=== PATIENT | female | born 1990 | race Caucasian/White ===

== ENCOUNTER → 2019-03-02 | Outpatient (REF) | payer OTHER | LOC: M LAB LCGH 12:00 | PROVIDERS: ATTEND Obstetrics & Gynecology | DX: Z12.4 Encounter for screening for malignant neoplasm of cervix (principal) | CPT/HCPCS: 87624; G0123 ==

== ENCOUNTER 2022-08-04 00:08 | Observation (INO) | payer OTHER ==
[~2022-08-04] VITALS: Ht 165.1 cm; Wt 91.1 kg
[2022-08-04] MEDS ORDERED: SERT50TA29 PO (00:19)
[2022-08-04] MEDS ORDERED: BISO5TAB14 PO (00:19)
[2022-08-04] MEDS ORDERED: TRIA37.577 PO (00:19)
[2022-08-04] MEDS ORDERED: LOSA100T46 PO (00:19)
[2022-08-04] MEDS ORDERED: AMPICILLIN SOD/SULBACTAM SOD 1.5 GM in D5W MINI-BAG PLUS 50 ML IV ONE (01:15)
[2022-08-04] MEDS ORDERED: BOOSTRIX VACCINE (TETANUS/DIPHTH/ACEL. PERTUSSIS) 0.5ML SYR IM.IMMUN ONE (01:15)
[2022-08-04] MEDS ORDERED: RABIES IMMUNE GLOBULIN 1500 INTERNATIONAL UNIT/5ML VIAL IM.IMMUN ONE (01:15)
[2022-08-04] MEDS ORDERED: RABIES VACCINE HUMAN 2.5 INTERNATIONAL UNITS/ML VIAL IM.IMMUN ONE (01:15)
[2022-08-04 01:23] LABS: BASO % 0.6 % (0.0-1.0); EOS # 0.1 10^3/uL (0.0-0.5); EOS % 0.9 % (0.0-3.0); HEMATOCRIT 36.5 % (36.0-47.0); HEMOGLOBIN 12.4 g/dl (12.0-15.5); LYMPH # 3.1 10^3/uL (1.5-5.0); LYMPH % 47.9 % (24.0-44.0); MEAN CORPUSCULAR HEMOGLOBIN 29.4 pg (27.0-33.0); MEAN CORPUSCULAR VOLUME 86.5 fl (80.0-96.0); MONO # 0.5 10^3/uL (0.0-0.8); MONO % 7.8 % (2.0-8.0); NEUTROPHILS # 2.7 10^3/uL (1.5-8.5); NEUTROPHILS % 42.6 % (36.0-66.0); PLATELET COUNT, AUTOMATED 304 10^3/uL (150-450); RED BLOOD COUNT 4.22 10^6/uL (4.00-5.40); WHITE BLOOD COUNT 6.4 10^3/uL (4.0-10.0)
[2022-08-04 01:46] LABS: BLOOD UREA NITROGEN 6 MG/DL (9-23); CALCIUM LEVEL 8.5 MG/DL (8.5-10.1); CARBON DIOXIDE LEVEL 22 MMOL/L (20-31); CHLORIDE LEVEL 100 MMOL/L (98-107); CREATININE FOR GFR 0.54 MG/DL (0.55-1.30); GLOMERULAR FILTRATION RATE > 60.0 (>60); GLUCOSE, FASTING 93 MG/DL (60-100); POTASSIUM SERUM 3.3 MMOL/L (3.5-5.1); SODIUM LEVEL 132 MMOL/L (136-145)
[2022-08-04 01:54] LABS: ETHYL ALCOHOL (ETHANOL) 0.291 % (0.000-0.010)
[2022-08-04 02:11] LABS: HCG, SERUM QUALITATIVE NEGATIVE (NEGATIVE)
[2022-08-04] MEDS ORDERED: PANT40TA29 PO (02:16)
[2022-08-04] MEDS ORDERED: HOME MED LIST COMPLETE! XX SCH (02:20)
[2022-08-04] MEDS ORDERED: POTASSIUM CHLORIDE INJ 30 MEQ in LR 1,000 ML IV SCH (02:40)
[2022-08-04] MEDS ORDERED: ONDANSETRON 4MG 2ML VIAL IV PRN ×2 (02:40→18:25)
[2022-08-04] MEDS: MORPHINE 2 MG/ML 1ML VIAL IV PRN ×2 (04:51→13:41)
[2022-08-04 06:40] LABS: BLOOD UREA NITROGEN < 5 MG/DL (9-23); CALCIUM LEVEL 8.5 MG/DL (8.5-10.1); CARBON DIOXIDE LEVEL 26 MMOL/L (20-31); CHLORIDE LEVEL 106 MMOL/L (98-107); CREATININE FOR GFR 0.57 MG/DL (0.55-1.30); GLOMERULAR FILTRATION RATE > 60.0 (>60); GLUCOSE, FASTING 86 MG/DL (60-100); POTASSIUM SERUM 3.8 MMOL/L (3.5-5.1); SODIUM LEVEL 140 MMOL/L (136-145)
[2022-08-04] MEDS: AMPICILLIN SOD/SULBACTAM SOD 3 GM in D5W MINI-BAG PLUS 100 ML IV SCH ×3 (08:07→19:50)
[2022-08-04] MEDS: KETOROLAC 30 MG/ML 1ML VIAL IV PRN (09:00)
[2022-08-04] MEDS: LR 1,000 ML IV SCH ×2 (09:01→17:25)
[2022-08-04 13:15] VITALS: BP 115/66; TEMP 98.1; O2SAT 96
[2022-08-04] MEDS: PANTOPRAZOLE 40MG TAB (PROTONIX) PO SCH (13:37)
[2022-08-04] MEDS: SERTRALINE HCL 50 MG TAB PO SCH (13:37)
[2022-08-04] MEDS: bisoproloL fumarate 5 MG TAB PO SCH (13:38)
[2022-08-04] MEDS ORDERED: LIDOCAINE W/EPINEPHRINE 1% 20ML VIAL As Ordered ONE (16:03)
[2022-08-04] MEDS ORDERED: POVIDONE-IODINE 5% OPHTH PREP SOL 30ML As Ordered ONE (16:03)
[2022-08-04] MEDS ORDERED: POLYSPORIN TOPICAL OINTMENT 15GM As Ordered ONE (16:03)
[2022-08-04] MEDS ORDERED: ROCURONIUM BROMIDE 50MG/5ML VIAL As Ordered ONE ×2 (17:02→17:46)
[2022-08-04] MEDS ORDERED: ONDANSETRON 4MG 2ML VIAL As Ordered ONE (17:02)
[2022-08-04] MEDS ORDERED: SEVOFLURANE INHAL SOLN 250 ML BTL As Ordered ONE (17:02)
[2022-08-04] MEDS ORDERED: SUGAMMADEX SODIUM 500 MG/5 ML VIAL (BRIDION) As Ordered ONE (17:02)
[2022-08-04] MEDS ORDERED: fentaNYL 100 MCG/2 ML INJECTION As Ordered ONE ×2 (17:02→17:49)
[2022-08-04] MEDS ORDERED: LIDOCAINE 2% 100MG/5ML SDV (FOR ANES.) As Ordered ONE (17:02)
[2022-08-04] MEDS ORDERED: ACETAMINOPHEN 1000MG 100ML IV BAG As Ordered ONE (17:02)
[2022-08-04] MEDS ORDERED: propofoL 200 MG/20 ML VIAL As Ordered ONE (17:02)
[2022-08-04] MEDS ORDERED: METOCLOPRAMIDE INJ 10MG/2ML VIAL As Ordered ONE (17:02)
[2022-08-04] MEDS ORDERED: MIDAZOLAM INJ 2MG/2ML VIAL As Ordered ONE (17:02)
[2022-08-04] MEDS ORDERED: fentaNYL 100 MCG/2 ML INJECTION IV PRN (18:25)
[2022-08-04] MEDS ORDERED: oxyCODONE 5MG TAB PO PRN (18:25)
[2022-08-04] MEDS ORDERED: LR 1,000 ML IV SCH (18:25)
[2022-08-04] MEDS: HYDROMORPHONE HCL 0.5 MG/ 0.5 ML SYRINGE IV PRN ×2 (18:57→19:02)
[2022-08-04 19:45] VITALS: BP 128/80; TEMP 96.4; O2SAT 98
[2022-08-04 20:15] VITALS: BP 133/78; TEMP 95.4; O2SAT 98
[2022-08-04 21:15] VITALS: BP 121/75; TEMP 97.9; O2SAT 96
[2022-08-04 22:10] VITALS: BP 119/69; TEMP 96.8; O2SAT 96
[2022-08-04 23:11] VITALS: BP 115/69; TEMP 96.6; O2SAT 96
[2022-08-05 00:13] VITALS: BP 115/69; TEMP 95.9; O2SAT 96
[2022-08-05] MEDS: KETOROLAC 30 MG/ML 1ML VIAL IV PRN (00:25)
[2022-08-05] MEDS: AMPICILLIN SOD/SULBACTAM SOD 3 GM in D5W MINI-BAG PLUS 100 ML IV SCH ×2 (01:37→06:49)
[2022-08-05 02:00] VITALS: BP 115/71; TEMP 96.8; O2SAT 96
[2022-08-05] MEDS: LR 1,000 ML IV SCH (03:25)
[2022-08-05 05:23] VITALS: BP 116/69; TEMP 96.8; O2SAT 96
[2022-08-05 06:46] LABS: BASO % 0.3 % (0.0-1.0); HEMOGLOBIN 11.1 g/dl (12.0-15.5); LYMPH % 17.2 % (24.0-44.0); MEAN CORPUSCULAR HEMOGLOBIN 28.8 pg (27.0-33.0); MEAN CORPUSCULAR HGB CONC 32.6 g/dl (32.0-36.5); MEAN CORPUSCULAR VOLUME 88.3 fl (80.0-96.0); MONO # 0.4 10^3/uL (0.0-0.8); MONO % 6.6 % (2.0-8.0); NEUTROPHILS # 4.6 10^3/uL (1.5-8.5); NEUTROPHILS % 75.7 % (36.0-66.0); PLATELET COUNT, AUTOMATED 226 10^3/uL (150-450); RED BLOOD COUNT 3.85 10^6/uL (4.00-5.40)
[2022-08-05 07:11] LABS: BLOOD UREA NITROGEN 7 MG/DL (9-23); CALCIUM LEVEL 8.3 MG/DL (8.5-10.1); CARBON DIOXIDE LEVEL 25 MMOL/L (20-31); CHLORIDE LEVEL 105 MMOL/L (98-107); CREATININE FOR GFR 0.62 MG/DL (0.55-1.30); GLOMERULAR FILTRATION RATE > 60.0 (>60); GLUCOSE, FASTING 99 MG/DL (60-100); POTASSIUM SERUM 3.8 MMOL/L (3.5-5.1); SODIUM LEVEL 135 MMOL/L (136-145)
[2022-08-05] MEDS ORDERED: LOSARTAN 50MG TABLET PO SCH (09:00)
[2022-08-05] MEDS ORDERED: DYAZIDE 37.5/25 CAP (TRIAM/HCTZ) PO SCH (09:00)
[2022-08-05] MEDS: MORPHINE 2 MG/ML 1ML VIAL IV PRN (09:12)
[2022-08-05] MEDS: SERTRALINE HCL 50 MG TAB PO SCH (09:14)
[2022-08-05 09:16] VITALS: BP 129/80
[2022-08-05] MEDS: bisoproloL fumarate 5 MG TAB PO SCH (09:16)
[2022-08-05] MEDS: PANTOPRAZOLE 40MG TAB (PROTONIX) PO SCH (09:17)
[2022-08-05 09:57] VITALS: BP 129/79; TEMP 97.1; O2SAT 96
[2022-08-05] MEDS ORDERED: AMOX875T2 PO (10:33)
== END 2022-08-05 13:35 | disposition home or self-care (01) ==
LOC: M ED 00:08 → M ED INP 00:09 → ENRESERV 11:47 → M MS5PR 13:15
PROVIDERS: ADMIT Internal Medicine; ATTEND Student in an Organized Health Care Education/Training Program
DX: S01.551A Open bite of lip, initial encounter (principal); F10.920 Alcohol use, unspecified with intoxication, uncomplicated; W54.0XXA Bitten by dog, initial encounter; Y92.89 Other specified places as the place of occurrence of the external cause; I10 Essential (primary) hypertension; E87.6 Hypokalemia; E87.1 Hypo-osmolality and hyponatremia; F32.A Depression, unspecified; F17.210 Nicotine dependence, cigarettes, uncomplicated; Z79.899 Other long term (current) drug therapy; Z23 Encounter for immunization
CPT/HCPCS: 13152; 14060; 36415; 80048; 82077; 83735; 84703; 85025; 87635; 90375; 90471; 90472; 90675; 90715; 96365; 96366; 96367; 96372; 96375; 96376; 99285; J0131; J0295; J1100; J1170; J1885; J2250; J2405; J2765; J3010; Q4118